=== PATIENT | female | born 1985 | race Asian ===

== ENCOUNTER 2022-07-19 22:57 | Inpatient (IN) | payer BC ==
[~2022-07-19] VITALS: Ht 170.2 cm; Wt 102.5 kg
[2022-07-19 23:17] VITALS: BP 138/92
[2022-07-19] MEDS ORDERED: ALBUTEROL SULFATE/IPRATROPIU 3 ML SOL IH ONE (23:50)
[2022-07-20] MEDS ORDERED: DEXAMETHASONE 10 MG/ML VIAL IVP ONE (00:25)
[2022-07-20] MEDS ORDERED: ALBUTEROL SULFATE/IPRATROPIU 3 ML SOL IH ONE (02:10)
[2022-07-20] MEDS ORDERED: MAG SULF 2000 MG/WATER PREMIX 50 ML IV ONE (02:10)
[2022-07-20] MEDS ORDERED: ALBUTEROL SULFATE/IPRATROPIU 3 ML SOL IH PRN ×2 (03:25→07:50)
[2022-07-20 04:37] VITALS: BP 119/66
[2022-07-20] MEDS ORDERED: ACETAMINOPHEN 325 MG TAB PO PRN (07:45)
[2022-07-20] MEDS ORDERED: POTASSIUM CHLORIDE 10 MEQ TABER PO PRN (07:45)
[2022-07-20] MEDS ORDERED: DOCUSATE SODIUM 100 MG GELCAP PO PRN (07:45)
[2022-07-20] MEDS ORDERED: HYDROcodone/APAP 7.5/325 MG 1 TAB PO PRN (07:45)
[2022-07-20] MEDS ORDERED: ONDANSETRON 4 MG/2 ML VIAL IM/IVP PRN (07:45)
[2022-07-20] MEDS ORDERED: guaiFENesin DM 200/20 MG-10 ML 10 ML UDC PO PRN (07:45)
[2022-07-20] MEDS ORDERED: ZOLPIDEM 5 MG TAB PO PRN (07:45)
[2022-07-20 08:00] VITALS: BP 122/78
[2022-07-20] MEDS ORDERED: methylPREDNISolone SS 40 MG/ML VIAL IVP SCH (08:05)
[2022-07-20 08:44] LABS: BASOPHILS % (AUTO) 0.2 % (0.0-2.0); EOSINOPHILS % (AUTO) 0.1 % (0.0-4.0); HEMOGLOBIN 12.8 g/dL (12.0-16.0); LYMPHOCYTES % (AUTO) 16.1 % (20.5-51.1); MEAN CORPUSCULAR HEMOGLOBIN 28 pg (27-31); MEAN CORPUSCULAR HGB CONC 33 g/dL (33-37); MEAN CORPUSCULAR VOLUME 84.1 fL (80-94); MONOCYTES # (AUTO) 0.1 K/uL (0.8-1.0); MONOCYTES % (AUTO) 1.8 % (1.7-9.3); NEUTROPHILS # (AUTO) 4.9 K/uL (1.8-7.7); NEUTROPHILS % (AUTO) 81.8 % (42.2-75.2); PLATELET COUNT (AUTO) 274 K/uL (140-450); RED BLOOD CELL COUNT(AUTO) 4.64 MIL/uL (4.20-5.40); RED CELL DISTRIBUTION WIDTH 14.5 % (11.6-13.7)
[2022-07-20] MEDS ORDERED: LEVOFLOXACIN 500 MG/D5W PREMIX 100 ML IV SCH (09:00)
[2022-07-20] MEDS: PANTOPRAZOLE 40 MG TABEC PO SCH (09:07)
[2022-07-20] MEDS: OSELTAMIVIR PHOSPHATE 75 MG CAP PO SCH ×2 (09:07→20:17)
[2022-07-20 09:14] LABS: ALBUMIN 3.1 g/dL (3.4-5.0); ANION GAP 12.2 (8-16); CARBON DIOXIDE 23.9 mmol/L (21-32); POTASSIUM 4.1 mmol/L (3.5-5.1); TOTAL BILIRUBIN 0.3 mg/dL (0.0-1.0)
[2022-07-20 09:24] LABS: CHOL/HDL RATIO 4.5 (1-4.5); MAGNESIUM 2.4 mg/dL (1.8-2.4); PHOSPHORUS 2.9 mg/dL (2.5-4.9); THYROID STIMULATING HORMONE 0.47 uIU/mL (0.34-3.74)
[2022-07-20 09:42] LABS: PROTHROMBIN TIME 9.9 secs (10.8-13.4)
[2022-07-20 12:00] VITALS: BP 120/70
[2022-07-20] MEDS: ALBUTEROL SULFATE/IPRATROPIU 3 ML SOL IH SCH ×2 (13:00→19:24)
[2022-07-20] MEDS: methylPREDNISolone SS 125 MG/2 ML VIAL IVP SCH ×2 (14:28→20:17)
[2022-07-20 16:00] VITALS: BP 120/70
[2022-07-20 20:00] VITALS: BP 112/60
[2022-07-21] VITALS: BP 101/67
[2022-07-21] MEDS: ALBUTEROL SULFATE/IPRATROPIU 3 ML SOL IH SCH ×4 (01:00→19:31)
[2022-07-21 04:00] VITALS: BP 101/60
[2022-07-21] MEDS: methylPREDNISolone SS 125 MG/2 ML VIAL IVP SCH ×3 (04:32→21:24)
[2022-07-21 06:40] LABS: ANION GAP 13.1 (8-16); CARBON DIOXIDE 25.4 mmol/L (21-32); CREATININE 0.9 mg/dL (0.6-1.3); POTASSIUM 4.5 mmol/L (3.5-5.1)
[2022-07-21 06:48] LABS: HEMATOCRIT 38.1 % (36-48); HEMOGLOBIN 12.1 g/dL (12.0-16.0); LYMPHOCYTES # (AUTO) 3.2 K/uL (2.5-16.5); LYMPHOCYTES % (AUTO) 17.2 % (20.5-51.1); MEAN CORPUSCULAR HEMOGLOBIN 27 pg (27-31); MEAN CORPUSCULAR HGB CONC 32 g/dL (33-37); MEAN CORPUSCULAR VOLUME 84.3 fL (80-94); MONOCYTES # (AUTO) 0.8 K/uL (0.8-1.0); MONOCYTES % (AUTO) 4.2 % (1.7-9.3); NEUTROPHILS # (AUTO) 14.6 K/uL (1.8-7.7); NEUTROPHILS % (AUTO) 78.6 % (42.2-75.2); PLATELET COUNT (AUTO) 296 K/uL (140-450); RED BLOOD CELL COUNT(AUTO) 4.51 MIL/uL (4.20-5.40); RED CELL DISTRIBUTION WIDTH 14.9 % (11.6-13.7); WHITE BLOOD COUNT (AUTO) 18.6 K/uL (4.8-10.8)
[2022-07-21 08:00] VITALS: BP 108/65
[2022-07-21] MEDS: guaiFENesin 600 MG TABER PO SCH ×2 (10:00→21:24)
[2022-07-21] MEDS: OSELTAMIVIR PHOSPHATE 75 MG CAP PO SCH ×2 (10:00→21:24)
[2022-07-21] MEDS: PANTOPRAZOLE 40 MG TABEC PO SCH (10:00)
[2022-07-21 12:00] VITALS: BP 112/70
[2022-07-21 16:00] VITALS: BP 112/63
[2022-07-21 20:00] VITALS: BP 108/60
[2022-07-22] MEDS: ALBUTEROL SULFATE/IPRATROPIU 3 ML SOL IH SCH ×3 (00:59→13:54)
[2022-07-22] MEDS: methylPREDNISolone SS 125 MG/2 ML VIAL IVP SCH (05:07)
[2022-07-22 07:29] LABS: ANION GAP 14.4 (8-16); CARBON DIOXIDE 23.9 mmol/L (21-32); CREATININE 0.9 mg/dL (0.6-1.3); POTASSIUM 4.3 mmol/L (3.5-5.1)
[2022-07-22 08:00] VITALS: BP 122/78
[2022-07-22 08:03] LABS: BASOPHILS % (AUTO) 0.1 % (0.0-2.0); HEMATOCRIT 36.4 % (36-48); HEMOGLOBIN 11.6 g/dL (12.0-16.0); LYMPHOCYTES # (AUTO) 2.8 K/uL (2.5-16.5); LYMPHOCYTES % (AUTO) 14.9 % (20.5-51.1); MEAN CORPUSCULAR HEMOGLOBIN 27 pg (27-31); MEAN CORPUSCULAR HGB CONC 32 g/dL (33-37); MEAN CORPUSCULAR VOLUME 85.1 fL (80-94); MONOCYTES # (AUTO) 0.7 K/uL (0.8-1.0); MONOCYTES % (AUTO) 3.6 % (1.7-9.3); NEUTROPHILS # (AUTO) 15.6 K/uL (1.8-7.7); NEUTROPHILS % (AUTO) 81.4 % (42.2-75.2); PLATELET COUNT (AUTO) 311 K/uL (140-450); RED BLOOD CELL COUNT(AUTO) 4.27 MIL/uL (4.20-5.40); RED CELL DISTRIBUTION WIDTH 15.1 % (11.6-13.7); WHITE BLOOD COUNT (AUTO) 19.2 K/uL (4.8-10.8)
[2022-07-22] MEDS ORDERED: predniSONE 20 MG TAB PO SCH (09:00)
[2022-07-22] MEDS: guaiFENesin 600 MG TABER PO SCH (09:12)
[2022-07-22] MEDS: PANTOPRAZOLE 40 MG TABEC PO SCH (09:12)
[2022-07-22] MEDS: OSELTAMIVIR PHOSPHATE 75 MG CAP PO SCH (09:12)
[2022-07-22] MEDS ORDERED: PRED20TA5 PO (10:53)
[2022-07-22] MEDS ORDERED: MUC600 PO (10:53)
[2022-07-22] MEDS ORDERED: TAM75 PO (10:53)
== END 2022-07-22 16:50 | disposition home or self-care (01) | DRG 189 ==
LOC: MED 22:57 → MTU 07-20 03:31
PROVIDERS: ADMIT Family Medicine; ATTEND Family Medicine
DX: J96.01 Acute respiratory failure with hypoxia (principal); J45.41 Moderate persistent asthma with (acute) exacerbation; E44.1 Mild protein-calorie malnutrition; J11.1 Influenza due to unidentified influenza virus with other respiratory manifestations; R74.01 Elevation of levels of liver transaminase levels; E78.5 Hyperlipidemia, unspecified; R73.9 Hyperglycemia, unspecified; E66.9 Obesity, unspecified; Z20.822 Contact with and (suspected) exposure to COVID-19; Z88.0 Allergy status to penicillin; Z68.35 Body mass index [BMI] 35.0-35.9, adult
CPT/HCPCS: 36415; 71045; 71275; 80048; 80053; 82150; 83036; 83690; 83735; 83880; 84100; 84443; 85025; 85379; 85610; 85730; 87081; 94010; 94640; 96365; 96375; 99285; J1100; J1956; J2920; J2930; J3475; J7512; Q0092; Q9967

== ENCOUNTER 2023-07-01 20:52 | Emergency (ER) | payer BC ==
[~2023-07-01] VITALS: Ht 170.2 cm; Wt 108.9 kg
[~2023-07-01 20:52] MED LIST: MUC600 PO; PRED20TA5 PO; TAM75 PO
[2023-07-01 21:32] VITALS: BP 137/98; PULSE 82; RESP 16; TEMP 97.4; O2SAT 99
[2023-07-01] MEDS ORDERED: KETOROLAC 60 MG/2 ML VIAL IM ONE (22:45)
[2023-07-02] MEDS ORDERED: NAPR-54 PO (01:22)
== END 2023-07-02 01:27 | disposition home or self-care (01) ==
LOC: MED 20:52
DX: S33.5XXA Sprain of ligaments of lumbar spine, initial encounter (principal); I10 Essential (primary) hypertension; J45.909 Unspecified asthma, uncomplicated; Z79.899 Other long term (current) drug therapy; Z88.0 Allergy status to penicillin; X58.XXXA Exposure to other specified factors, initial encounter; Y93.89 Activity, other specified; Y92.89 Other specified places as the place of occurrence of the external cause; Y99.8 Other external cause status
CPT/HCPCS: 96372; 99283; J1885